=== PATIENT | female | born 1985 | race American Indian/Alaskan Native ===

== ENCOUNTER 2018-06-14 16:22 | Emergency (ER) | payer MEDICAID, OTHER ==
[2018-06-14 16:28] VITALS: BMI 42.0
[2018-06-14 16:29] VITALS: BP 132/86; PULSE 88; RESP 20; TEMP 99.4; O2SAT 98
--- NOTE | 2018-06-14 16:39 | C.PDOC ---
History Of Present Illness 32 y/o female presents to the ED for evaluation of abscess for 4 days. Patient reports abscess has been draining for the past 2 days. Denies trauma, states it spontaneously erupted. Patient is now complaining of persistent swelling around the area. No fever or chills. Denies PMHx of diabetes. Time Seen by Provider: 06/14/18 16:36 Chief Complaint (Nursing): Abnormal Skin Integrity History Per: Patient History/Exam Limitations: no limitations Onset/Duration Of Symptoms: Days Current Symptoms Are (Timing): Still Present Location Of Injury: Left: Abdomen Quality Of Symptoms: Painful, Draining Past Medical History Reviewed: Historical Data, Nursing Documentation, Vital Signs Vital Signs: Last Vital Signs Temp 99.4 F 06/14/18 16:28 Pulse 88 06/14/18 16:28 Resp 20 06/14/18 16:28 BP 132/86 06/14/18 16:28 Pulse Ox 98 06/14/18 16:40 - Medical History PMH: HTN, Hypercholesterolemia, Sexually Transmitted Disease (trichomoniasis) Denies: Chronic Kidney Disease - [facility] Medical Procedures INJECT/INFUSE NEC (04/28/15) Family History: States: Unknown Family Hx - Social History Hx Tobacco Use: Yes Hx Alcohol Use: Yes (SOCIALLY) Hx Substance Use: Yes (History of Marijuana use) - Immunization History Hx Tetanus Toxoid Vaccination: No Hx Influenza Vaccination: No Hx Pneumococcal Vaccination: No Review Of Systems Except As Marked, All Systems Reviewed And Found Negative. Constitutional: Negative for: Fever, Chills Respiratory: Negative for: Shortness of Breath Gastrointestinal: Negative for: Vomiting, Diarrhea Skin: Positive for: Other (Draining abscess to abdomen) Neurological: Negative for: Weakness, Numbness Physical Exam - Physical Exam Appears: Non-toxic, No Acute Distress Skin: Warm, Dry, Other (Draining superficial abscess to LLQ abdominal wall, with local induration, scant erythema, no discharge or fluctuance) Head: Atraumatic, Normacephalic Eye(s): bilateral: Normal Inspection Neck: Supple Chest: Symmetrical Cardiovascular: Rhythm Regular Respiratory: No Accessory Muscle Use, Other (NARD) Extremity: Bilateral: Atraumatic, Normal Color And Temperature, Normal ROM Pulses: Left Radial: Normal, Right Radial: Normal Neurological/Psych: Oriented x3, Normal Speech ED Course And Treatment O2 Sat by Pulse Oximetry: 98 (RA) Pulse Ox Interpretation: Normal Medical Decision Making Medical Decision Making: Impression: draining abscess Plan: Patient will be discharged home with prescription for Clindamycin and Motrin. Instructed on wound care, dressing changes twice daily. Patient advised to follow up with the clinic for wound check. Disposition Counseled Patient/Family Regarding: Diagnosis, Need For Followup, Rx Given - Disposition Referrals: [facility] [Outside] [facility] [Outside] Disposition: HOME/ ROUTINE Disposition Time: 16:37 Condition: IMPROVED Prescriptions: Clindamycin [Cleocin] 300 mg PO Q6 #28 cap Ibuprofen [Motrin] 600 mg PO Q6 #30 tab Instructions: Cellulitis (Skin Infection), Adult (DC) Forms: [employer] (Georgian) - POA Present On Arrival: None - Clinical Impression Clinical Impression: Abscess, Cellulitis - Scribe Statement The provider has reviewed the documentation as recorded by the Scribe (Jodie Landeros) Provider Attestation: All medical record entries made by the Scribe were at my direction and personally dictated by me. I have reviewed the chart and agree that the record accurately reflects my personal performance of the history, physical exam, medical decision making, and the department course for this patient. I have also personally directed, reviewed, and agree with the discharge instructions and disposition.
== END 2018-06-14 16:56 | disposition home or self-care (01) ==
LOC: C.ER 16:22
DX: L02.211 Cutaneous abscess of abdominal wall (principal); L03.311 Cellulitis of abdominal wall